=== PATIENT | female | born 2000 | race Caucasian/White ===

== ENCOUNTER 2023-03-28 13:19 | Emergency (ER) | payer BC ==
[~2023-03-28] VITALS: Ht 167.6 cm; Wt 72.6 kg
[2023-03-28 13:35] VITALS: BP_SYST 122; PULSE 95; RESP 18; TEMP 97.8; O2SAT 99
[2023-03-28] MEDS ORDERED: PRED20TA PO (14:23)
[2023-03-28] MEDS ORDERED: IBUP-1969 PO (14:23)
[2023-03-28 14:30] VITALS: BP_SYST 120; PULSE 91; RESP 18; TEMP 98; O2SAT 99
== END 2023-03-28 14:29 | disposition home or self-care (01) ==
LOC: SED 13:19
DX: J03.90 Acute tonsillitis, unspecified (principal)
CPT/HCPCS: 99283